=== PATIENT | female | born 1970 | race Caucasian/White ===

== ENCOUNTER 2017-07-14 16:29 | Emergency (ER) | payer MEDICARE, OTHER ==
[2017-07-14 16:46] VITALS: BP 156/82
[2017-07-14] MEDS ORDERED: Ibuprofen TAB* 600 MG PO ONE (17:01)
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
== END 2017-07-14 18:10 | disposition home or self-care (01) ==
LOC: UCCORT 16:29
DX: S16.1XXA Strain of muscle, fascia and tendon at neck level, initial encounter (principal); V48.5XXA Car driver injured in noncollision transport accident in traffic accident, initial encounter; Y93.89 Activity, other specified; Y92.410 Unspecified street and highway as the place of occurrence of the external cause; Z86.73 Personal history of transient ischemic attack (TIA), and cerebral infarction without residual deficits; H54.62 Unqualified visual loss, left eye, normal vision right eye; Z88.1 Allergy status to other antibiotic agents; Z88.5 Allergy status to narcotic agent; F17.210 Nicotine dependence, cigarettes, uncomplicated
CPT/HCPCS: 72050; 99212; A9270-GY; G0463